=== PATIENT | male | born 1965 | race Caucasian/White ===

== ENCOUNTER 2016-02-26 13:49 | Emergency (ER) | payer OTHER ==
[~2016-02-26] VITALS: Ht 185.4 cm; Wt 104.4 kg
[~2016-02-26 13:49] MED LIST: AMX500 PO; CITA20TA4 PO
[2016-02-26 13:54] VITALS: TEMP 36.7; Ht 185.4 cm; Wt 104.4 kg
--- NOTE | 2016-02-26 14:05 | EMERGENCY ROOM VISIT NOTE ---
History First contact with patient: 13:57 Chief Complaint: SUTURE/STAPLE REMOVAL Stated Complaint: REMOVAL OF SUTURE Nursing Triage Summary: Triage note: Pt sister reports that pt needs a tetanus shot. "we found out his was out of date. pt presents for removal of sutures to chin. History of Present Illness The patient is a 51 year old male who presents to the Emergency Room with complaints of Social History Smoking Status: Never Smoker Current/Historical Medications Scheduled Amoxicillin (Amoxicillin), 500 MG PO TID Citalopram Hydrobromide (Citalopram Hydrobromide), 20 MG PO DAILY Allergies Coded Allergies: No Known Allergies (Unverified , 02/20/16) Physical Exam Vital Signs Date Time Temp Pulse Resp B/P Pulse Ox O2 Delivery O2 Flow Rate FiO2 02/26/16 13:54 36.7 87 20 157/99 93 Room Air Medical Decision & Procedures Medications Administered Medications (Trade) Dose Ordered Sig/Ayde Route Start Time Stop Time Status Last Admin Dose Admin Diphtheria/ Pertussis/Tetanus Vacc (Adacel Inj) 0.5 ml ONCE ONCE IM. 02/26/16 14:15 02/26/16 14:16 02/26/16 14:12 0.5 ML Departure Information Referrals No Doctor, Assigned (PCP) Patient Instructions A Signature Page, [facility]
[2016-02-26] MEDS ORDERED: DIPHTHERIA/TETANUS/PERTUSSIS 0.5 ML SYR/VIAL IM. ONE (14:15)
--- NOTE | 2016-02-26 14:17 | EMERGENCY ROOM VISIT NOTE ---
ED Visit Note First contact with patient: 13:57 CHIEF COMPLAINT: Suture removal This patient returns to the ED today for removal of sutures that were placed 5 days ago by myself. There has been no swelling, redness, or drainage from the wound. The patient feels like the laceration is healing well. REVIEW OF SYSTEMS: Head: No headache, injury or neck pain. Skin: No rash, new lesions, or masses. General: No fever or chills, fatigue, loss of appetite , or significant recent weight gain or loss. PMH: The patient is healthy; there is no significant medical or surgical history. SOCIAL HISTORY: Patient lives at home. PHYSICAL EXAM: Vital Signs: Reviewed Nurse's notes. There is a sutured wound on the chin with no signs of infection. There is no erythema, swelling, or tenderness. EMERGENCY DEPARTMENT COURSE: The sutures were removed without any difficulty and there was no separation of the wound edges. Adacel 0.5mL given. Tetanus now up to date. All three were removed. Pt. to have recheck with family doctor in 2 days. He is to return if worsening. Current/Historical Medications Scheduled Citalopram Hydrobromide (Citalopram Hydrobromide), 20 MG PO DAILY Allergies Coded Allergies: No Known Allergies (Unverified , 02/26/16) Vital Signs Date Time Temp Pulse Resp B/P Pulse Ox O2 Delivery O2 Flow Rate FiO2 02/26/16 14:25 88 16 100 02/26/16 13:54 36.7 87 20 157/99 93 Room Air Medications Administered Medications (Trade) Dose Ordered Sig/Ayde Route Start Time Stop Time Status Last Admin Dose Admin Diphtheria/ Pertussis/Tetanus Vacc (Adacel Inj) 0.5 ml ONCE ONCE IM. 02/26/16 14:15 02/26/16 14:16 DC 02/26/16 14:12 0.5 ML Departure Information Impression Primary Impression: Encounter for removal of sutures Dispostion Home / Self-Care Condition GOOD Referrals No Doctor, Assigned (PCP) Patient Instructions A Signature Page, [facility] Additional Instructions DISCHARGE INSTRUCTIONS AND TREATMENT: Wash any remaining crusts off of the wound today and resume your normal activities. Please keep your appointment with your family doctor in 2 days from now as you indicated. If you develop redness, swelling, drainage from the wound site please return here as soon as possible. Please return to the emergency department with any fevers, chills or any new/ concerning symptoms.. Your tetanus was updated today. This was your tetanus, diphtheria and pertussis immunization.
[2016-02-26 14:25] VITALS: BP 142/76; PULSE 88; O2SAT 100
== END 2016-02-26 14:39 | disposition home or self-care (01) ==
LOC: C.EDB 13:51 → C.EDD 14:39
DX: S01.81XD Laceration without foreign body of other part of head, subsequent encounter (principal); X58.XXXD Exposure to other specified factors, subsequent encounter